=== PATIENT | male | born 1995 | race American Indian/Alaskan Native ===

== ENCOUNTER 2018-04-12 15:00 | Emergency (ER) | payer OTHER ==
--- NOTE | 2018-04-12 16:05 | XRay Report ---
FINAL REPORT EXAM: XR HAND 3+V RT HISTORY: Right hand injury/fall COMPARISON: None. TECHNIQUE: Three views of the right hand FINDINGS: There is normal alignment without acute fracture or dislocation. The joint spaces are preserved. The overlying soft tissues are intact. IMPRESSION: No acute bony abnormality of the right hand.
[2018-04-12] MEDS ORDERED: IBUPROFEN PO ONE (17:25)
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
[2018-04-12 17:55] VITALS: BP 138/73
== END 2018-04-12 17:51 | disposition home or self-care (01) ==
LOC: ED 15:00
DX: S63.91XA Sprain of unspecified part of right wrist and hand, initial encounter (principal); F17.200 Nicotine dependence, unspecified, uncomplicated; F12.10 Cannabis abuse, uncomplicated; X58.XXXA Exposure to other specified factors, initial encounter; Y93.67 Activity, basketball; Y92.89 Other specified places as the place of occurrence of the external cause; Y99.8 Other external cause status